=== PATIENT | male | born 1990 | race Caucasian/White ===

== ENCOUNTER 2018-04-26 20:30 | Inpatient (IN) | payer OTHER ==
[~2018-04-26] VITALS: Ht 188 cm; Wt 73.9 kg
--- NOTE | 2018-04-26 20:45 | NUR ---
BBSELF C/C R LOWER LEG SWELLING/REDNESS/PAIN X 3 DAYS, WORSE TODAY. PT WAS SEEN 2 DAYS AGO FOR SAME ISSUE, CURRENTLY ON ANTIBIOTIC TREATMENT. PT IS AAOX4. REDNESS/SWELLING OF RIGHT LOWER EXTRREMITY NOTED. SKIN WNL. RESP EVEN AND UNLABORED. PT IS AFEBRILE. NO S/S OF ACUTE DISTRESS NOTED. PT PLACED ON SOLE MOLDING MACHINE OPERATOR AND POX. PT SAFETY AND COMFORT MEASURES IN PLACE. AWAITING MD FOR EVAL
--- NOTE | 2018-04-26 20:57 | NUR ---
CALLED FOR MED SURG BED
[2018-04-26] MEDS ORDERED: VANCOMYCIN 1 GM in IV D5W 250 ML IV ONE (21:00)
[2018-04-26] MEDS ORDERED: PIPERACILLIN /TAZOBACTAM 3.375 G in IV D5W 50 ML IV ONE (21:00)
--- NOTE | 2018-04-26 21:02 | NUR ---
CALLED FOR PICC LINE
--- NOTE | 2018-04-26 21:20 | NUR ---
SPOKE WITH JUS AT [facility] TO MAKE PICC LINE NURSE AWARE OF POSSIBLE PICC LINE INSERTION IN ED. PER JUS, PICC LINE NURSE WILL BE MADE AWARE
[2018-04-26] MEDS ORDERED: PIPERACILLIN /TAZOBACTAM 3.375 G VIAL IV ONE (21:24)
[2018-04-26] MEDS ORDERED: VANCOMYCIN 1 GM VIAL ONE (21:24)
--- NOTE | 2018-04-26 21:25 | NUR ---
GOT BED 200
--- NOTE | 2018-04-26 21:55 | NUR ---
PICC LINE NURSE BEDSIDE WITH PT
[2018-04-26] MEDS ORDERED: ACETAMINOPHEN 325 MG TABLET PO PRN (22:00)
[2018-04-26] MEDS ORDERED: HYDROCODONE/APAP 5/325MG 1 EACH TABLET PO PRN (22:00)
[2018-04-26] MEDS ORDERED: Z GUARD REMEDY 2 OZ OINT TP PRN (22:00)
[2018-04-26] MEDS ORDERED: MAGNESIUM HYDROXIDE 30 ML UDC PO PRN (22:00)
[2018-04-26] MEDS ORDERED: MAG HYDROX/AL HYDROX/SIMETH 30 ML UDC PO PRN (22:00)
[2018-04-26] MEDS ORDERED: ONDANSETRON HCL/PF 4 MG/2 ML VIAL IVP PRN (22:00)
[2018-04-26] MEDS ORDERED: ZOLPIDEM TARTRATE 5 MG TABLET PO PRN (22:00)
[2018-04-26 22:20] LABS: BASOPHILS # (AUTO) 0.1 /CMM (0.0-0.2); BASOPHILS % (AUTO) 1.1 % (0.0-2.0); EOSINOPHILS % (AUTO) 1.6 % (0.0-6.0); HEMATOCRIT 33 % (39-51); HEMOGLOBIN 10.6 g/dL (13.5-17.5); LYMPHOCYTES # (AUTO) 2.2 /CMM (0.8-4.8); LYMPHOCYTES % (AUTO) 18.8 % (20.0-44.0); MEAN CORPUSCULAR HEMOGLOBIN 28 PG (26.0-33.0); MEAN CORPUSCULAR HGB CONC 32 g/dl (31.0-36.0); MEAN CORPUSCULAR VOLUME 86 fL (80-96); MONOCYTES # (AUTO) 1.1 /CMM (0.1-1.30); MONOCYTES % (AUTO) 9.6 % (2.0-12.0); NEUTROPHILS # (AUTO) 8.1 /CMM (1.8-8.9); NEUTROPHILS % (AUTO) 68.9 % (43.0-81.0); PLATELET COUNT (AUTO) 282 /CMM (150-450); RDW COEFFICIENT OF VARIATION 14.2 (11.5-15.0); RED BLOOD CELL COUNT(AUTO) 3.83 MIL/uL (4.5-6.0); WHITE BLOOD COUNT (AUTO) 11.7 K/uL (4.3-11.0)
--- NOTE | 2018-04-26 22:29 | NUR ---
REPORT GIVEN TO KENYATTA CARDOSO FOR MAE.
[2018-04-26 22:40] LABS: CALCIUM, SERUM 8.6 mg/dL (8.5-10.1); CARBON DIOXIDE 28 mmol/L (21-32); CHLORIDE 99 mmol/L (98-107); CREATININE 0.7 mg/dL (0.6-1.3); GLUCOSE 107 mg/dL (74-106); INR 0.96 (0.87-1.13); POTASSIUM 4.1 mmol/L (3.5-5.1); SODIUM SERUM 134 mmol/L (136-145); UREA NITROGEN, BLOOD 17 mg/dL (7-18)
[2018-04-26 22:41] LABS: ALANINE AMINOTRANSFERASE 36 U/L (12-78); ALBUMIN 3.3 g/dL (3.4-5.0); ALKALINE PHOSPHATASE 101 U/L (46-116); ASPARTATE AMINOTRANSFERASE 19 U/L (15-37); BILIRUBIN,DIRECT 0.2 mg/dL (0.0-0.2); BILIRUBIN,TOTAL 0.7 mg/dL (0.2-1.0); TOTAL PROTEIN, SERUM 7.2 g/dL (6.4-8.2)
[2018-04-26 22:43] LABS: TROPONIN I < 0.017 ng/mL (0.00-0.056)
--- NOTE | 2018-04-26 23:00 | NUR ---
ADMISSION NOTES: RECEIVED REPORT FROM WALKER ROSAS. PT BROUGHT TO THE UNIT VIA WHEELCHAIR, PT ADMITTED FOR RIGHT FOOT CELLULITIS, REDNESS, SWELLING +2 NOTED. PT ADMITTED TO USING HEROIN INJECTION AND CRYSTAL METH 2GM A DAY SINCE 18 Y/O, LAST USE WAS TODAY AROUND 1400 PRIOR TO GOING TO ER. PT WAS HERE 2DAYS AGO FOR SAME PROBLEM AND WAS GIVEN ATB PO. PT ONLY HAVE CELLPHONE, COINS AND REFUSING TO WEAR HOSPITAL GOWN. INSISTED ON USING STREET CLOTHES. ORIENTED PT TO UNIT POLICY AND HOURLY ROUNDING. PT CAME IN WITH PICC LINE, DOUBLE LUMEN, INFUSING WITH VANCOMYCIN FROM ER. PICC LINE WAS NEWLY INSERTED 04/26/18. SKIN ASSESSMENT PERFORMED WITH ANOTHER RN, TOOK PICTURES OF SKIN ISSUES, NOTED REDNESS ON SACRAL AREA, BUT PT REFUSED TO TAKE PHOTO STATED HE'S UNCOMFORTABLE. PT ALSO ADMITTED TO USING CIGARETTE. HOMELESS, STATED HAS FAMILY PROBLEM AND BEEN HOMELESS FOR 4YRS NOW. INVENTORY OF BELONGING COMPLETED BY TEJAL WILKINSON. SAFETY PRECAUTIONS FOR FALL INITIATED, CALL LIGHT IN REACH, WILL CONTINUE MONITORING PT.
[2018-04-26 23:12] VITALS: BP 121/68
--- NOTE | 2018-04-26 23:30 | NUR ---
RN NOTES: S/B DR HARRIS, DISCUSSED PLAN OF CARE
[2018-04-27] VITALS: BP 121/68
[2018-04-27] MEDS ORDERED: SULF1TAB48 PO (01:24)
--- NOTE | 2018-04-27 06:48 | NUR ---
RN CLOSING NOTES: PT IN BED, AWAKE, REMAINS WITH ANTHONY PICC LINE WITH DOUBLE LUMEN, PATENT AND FLUSHING WELL, WITH GOOD BLOOD RETURN NOTED, ON HL. DRESSING REMAINS C/D/I. NO REDNESS INFILTRATION NOTED ON SITE. RIGHT FOOT ELEVATED ON PILLOWS. PT REFUSED SCD AND REFUSED WEARING HOSPITAL GOWN. VS REMAINS STABLE, NEEDS ATTENDED. SAFETY PRECAUTIONS FOR FALL REMAINS ENGAGED, CALL LIGHT IN REACH, WILL ENDORSE TO DAY RN FOR MAE.
--- NOTE | 2018-04-27 07:20 | NUR ---
RN OPENING NOTE RECEIVED PT. PT IN BED SLEEPING. NO S/S OF RESP DISTRESS OR SOB. EDEMA OF R FOOT NOTED. R ARM PICC LINE IN PLACE. SAFETY MEASURES IN PLACE, CALL LIGHT WITHIN REACH. WILL CONTINUE TO MONITOR.
[2018-04-27 07:32] LABS: BASOPHILS % (AUTO) 0.4 % (0.0-2.0); EOSINOPHILS % (AUTO) 2.4 % (0.0-6.0); HEMATOCRIT 32 % (39-51); HEMOGLOBIN 10.8 g/dL (13.5-17.5); LYMPHOCYTES # (AUTO) 2.2 /CMM (0.8-4.8); LYMPHOCYTES % (AUTO) 21.6 % (20.0-44.0); MEAN CORPUSCULAR HEMOGLOBIN 29 PG (26.0-33.0); MEAN CORPUSCULAR HGB CONC 34 g/dl (31.0-36.0); MEAN CORPUSCULAR VOLUME 86 fL (80-96); MONOCYTES # (AUTO) 1.2 /CMM (0.1-1.30); MONOCYTES % (AUTO) 11.4 % (2.0-12.0); NEUTROPHILS # (AUTO) 6.6 /CMM (1.8-8.9); NEUTROPHILS % (AUTO) 64.2 % (43.0-81.0); PLATELET COUNT (AUTO) 265 /CMM (150-450); RDW COEFFICIENT OF VARIATION 14.1 (11.5-15.0); RED BLOOD CELL COUNT(AUTO) 3.74 MIL/uL (4.5-6.0); WHITE BLOOD COUNT (AUTO) 10.2 K/uL (4.3-11.0)
[2018-04-27 07:44] LABS: CALCIUM, SERUM 8.7 mg/dL (8.5-10.1); CREATININE 0.8 mg/dL (0.6-1.3); MAGNESIUM 1.9 mg/dL (1.8-2.4); PHOSPHORUS 4.1 mg/dL (2.5-4.9); POTASSIUM 4.4 mmol/L (3.5-5.1)
[2018-04-27 08:16] VITALS: BP 95/56
[2018-04-27] MEDS: VANCOMYCIN 1.25 GM in IV D5W 500 ML IV SCH ×2 (09:46→16:22)
[2018-04-27] MEDS ORDERED: FEE PK DOSING 1 MIN EA MC ONE (10:45)
[2018-04-27] MEDS: HYDROCODONE/APAP 10/325MG 1 EA TABLET PO PRN ×2 (11:22→17:45)
[2018-04-27 16:14] VITALS: BP 90/54
--- NOTE | 2018-04-27 18:38 | NUR ---
RN CLOSING NOTE PT IN BED RESTING. NO S/S OF RESP DISTRESS OR SOB. PT HAS C/O GENERALIZED PAIN AND SYMPTOMS OF OPIOID WITHDRAWL, WILL MEDICALLY MANAGE. ALL PT NEEDS ANTICIPATED AND MET. SAFETY MEASURES IN PLACE, CALL LIGHT WITHIN REACH. WILL ENDORSE TO LANDING SIGNAL OFFICER FOR MAE.
--- NOTE | 2018-04-27 19:30 | NUR ---
RN NOTES RECEIVED PT. SLEEPING BUT AROUSABLE, IV ANTIBIOTIC VANCOMYCIN WAS RUNNING, ON HIS PICC LINE ON THE RIGHT UPPER ARM. THE MOMENT PT. WOKE UP HE ASKED FOR HIS NORCO , PT JUST HAD HIS NORCO 10MG PO AND HE'S ASKING FOR NORCO 5 MG PO IN BETWEEN. EXPLAINED TO THE PT. THAT HE JUST RECEIVED IT. AND WILL CALL THE DOCTOR AND I WILL GET AN ATIVAN ORDER FOR HIS WITHDRAWAL, PT. DOESN'T WANT TO LISTEN AND THREATENED TO LEAVE AMA. CALLED THE BED RUBBER AND INFORMED HER THE SITUATION
--- NOTE | 2018-04-27 19:48 | NUR ---
RN NOTES PT. SIGNED AMA AND STILL DOESN'T WANT TO LISTEN . PT ADMITTED THAT EVEN WE TREATED HIM FOR HIS WITHDRAWAL WHEN HE LEAVE THE HOSPITAL HE WILL STILL USE HEROIN . PT HAS AN ANTIBIOTIC WHICH IS IN THE PHARMACY . ADVISED PT THAT IF HE CAN COME BACK TOMORROW SO WE GIVE IT BACK TO HIM , PT. JUST HAD BIS VANCOMYCIN IV
--- NOTE | 2018-04-27 20:08 | NUR ---
RN NOTES CALLED DR. HARRIS AND INFORMED HIM THAT PT LEAVE AMA. INFORMED HIM WHAT HAPPENED
== END 2018-04-27 20:48 | disposition left against medical advice (07) | DRG 383 ==
LOC: ER 20:32 → MEDSG2 22:01
PROVIDERS: ADMIT Internal Medicine; ATTEND Internal Medicine
DX: L03.115 Cellulitis of right lower limb (principal); E44.0 Moderate protein-calorie malnutrition; E87.1 Hypo-osmolality and hyponatremia; E88.09 Other disorders of plasma-protein metabolism, not elsewhere classified; F17.200 Nicotine dependence, unspecified, uncomplicated; B19.20 Unspecified viral hepatitis C without hepatic coma; E86.1 Hypovolemia; F11.10 Opioid abuse, uncomplicated; Z68.20 Body mass index [BMI] 20.0-20.9, adult; F15.10 Other stimulant abuse, uncomplicated
CPT/HCPCS: 36415; 80048-TC; 80076-TC; 83605-TC; 83735-TC; 84100-TC; 84484-TC; 85025-TC; 85730-TC; 87040-TC; 87081-TC; C1751; J2543; J3370; J7050; J7060; Z7610